=== PATIENT | female | born 2005 | race Caucasian/White ===

== ENCOUNTER 2024-10-10 14:40 | Emergency (ER) | payer OTHER ==
--- NOTE | 2024-10-10 16:39 | RAD REPORT ---
EXAM: CT Head Brain Wo Cont HISTORY: head injury COMPARISON: None TECHNIQUE: Multiple contiguous axial images were obtained for a CT of the brain without contrast. Sag ittal and coronal reformats were performed. One or more of the following dose reduction techniques were used: Automated exposure control, adjus tment of the mA and kV according to patient size, and iterative reconstruction. Unless otherwise specified, incidental findings do not require dedicated imaging follow-up. FINDINGS: No evidence of hydrocephalus, intracranial hemorrhage, or extra-axial fluid collection. The brain is normal in morphology. The calvarium is intact. The visualized paranasal sinuses and mastoid air cells are essentially clear . IMPRESSION: No evidence of acute intracranial abnormality.
--- NOTE | 2024-10-10 16:57 | EDPHYS ---
Physician Documentation [facility] Name: Ari Zelaya Age: 19 yrs Sex: Female : 2005 Arrival Date: 10/10/2024 Time: 14:40 Bed Treatment Private MD: ED Physician Suleman Edwards HPI: 10/10 15:06 This 19 yrs old Female presents to ER via Ambulatory with complaints of Head Injury rn Without LOC-Adult. 15:06 The patient or guardian reports injury, pain. The complaints affect the right temporal rn area. Onset: The symptoms/episode began/occurred just prior to arrival. Severity of symptoms: At their worst the symptoms were mild, in the emergency department the symptoms have improved. The patient has experienced similar episodes in the past. Patient reports fall while trying to clean up debris, struck right confucianist on a tree branch. No LOC. No blood thinners. Has had 2 concussions in the past. No seizure. No vomiting but reports nausea.. Historical: - Allergies: 15:06 Codeine; cm10 15:06 PENICILLINS; cm10 - PMHx: 15:06 Hypoglycemia; ROMEO DISEASE; cm10 - Immunization history:: Adult Immunizations up to date. - Infectious Disease History:: Denies. - Family history:: not pertinent. - Social history:: Smoking status: unknown. - Hospitalizations: : No recent hospitalization is reported. ROS: 15:06 Constitutional: Negative for fever, chills, and weight loss, Neck: Negative for injury, rn pain, and swelling, Cardiovascular: Negative for chest pain, palpitations, and edema, Respiratory: Negative for shortness of breath, cough, wheezing, and pleuritic chest pain, Abdomen/GI: Negative for abdominal pain or vomiting, positive for nausea Back: Negative for injury and pain, MS/Extremity: Negative for injury and deformity, Skin: Negative for injury, rash, and discoloration, Neuro: Positive for head injury with headache. Exam: 15:06 Constitutional: This is a well developed, well nourished patient who is awake, alert, rn and in no acute distress. Head/Face: Normocephalic, atraumatic. Neck: No midline cervical tenderness. MS/ Extremity: Pulses equal, no cyanosis. Neurovascular intact. Full, normal range of motion. Equal circumference. Superficial abrasions to the right forearm with full range of motion. Neuro: Awake and alert, GCS 15, oriented to person, place, time, and situation. Cranial nerves II-XII grossly intact. Motor strength 5/5 in all extremities. Sensory grossly intact. Cerebellar exam normal. Normal gait. Vital Signs: 15:05 BP 137 / 92; Pulse 94; Resp 18; Temp 99.3(O); Pulse Ox 96% on R/A; Pain 0/10; cm10 17:15 BP 131 / 84; Pulse 74; Resp 17; Temp 98; Pulse Ox 99% on R/A; rs5 15:05 Pain Scale: Adult cm10 [place] Coma Score: 15:06 Eye Response: spontaneous(4). Motor Response: obeys commands(6). Verbal Response: rn oriented(5). Total: 15. 16:56 Eye Response: spontaneous(4). Motor Response: obeys commands(6). Verbal Response: rn oriented(5). Total: 15. MDM: 14:51 Medical Screening Exam initiated rn 16:56 Differential diagnosis: Contusion of head. Data reviewed: vital signs, nurses notes, rn radiologic studies, CT scan, and as a result, I will discharge patient. Counseling: I had a detailed discussion with the patient and/or guardian regarding the historical points, exam findings, and any diagnostic results supporting the discharge/admit diagnosis, radiology results, the need for outpatient follow up, to return to the emergency department if symptoms worsen or persist or if there are any questions or concerns that arise at home. Special discussion: I discussed with the patient/guardian in detail that at this point there is no indication for admission to the hospital. It is understood, however, that if the symptoms persist or worsen the patient needs to return immediately for re-evaluation. 10/10 14:56 Order name: CT Head Brain wo Cont; Complete Time: 16:55 rn Administered Medications: No medications were administered Disposition Summary: 10/10/24 16:57 Discharge Ordered Notes: Location: Home rn Problem: new rn Symptoms: have improved rn Condition: Stable rn Diagnosis - Unspecified injury of head, initial encounter rn Followup: rn - With: Private Physician - When: As needed - Reason: Recheck today's complaints, Re-evaluation by your physician Discharge Instructions: - Discharge Summary Sheet rn - Head Injury, Adult rn Forms: - Medication Reconciliation Form rn - Antibiotic broomcorn grader - Prescription Opioid Use rn - Patient Portal Instructions rn - Leadership Thank You Letter rn Signatures: Dispatcher [employer] Suleman Barnes MD MD rn Martinez, Clarissa, RN RN 10 Corrections: (The following items were deleted from the chart) 15:07 15:06 Allergies: No Known Allergies; cm10 cm10
--- NOTE | 2024-10-10 16:57 | ER ---
Nurse's Notes [facility] Name: Ari Zelaya Age: 19 yrs Sex: Female : 2005 Arrival Date: 10/10/2024 Time: 14:40 Bed Treatment Private MD: Diagnosis: Unspecified injury of head, initial encounter Presentation: 10/10 15:05 Chief complaint: Patient states: FELL AND HIT HER HEAD ON A TREE. PT ALSO COMPLAINING cm10 OF PAIN TO RIGHT ARM PAIN.. NO LOC. Coronavirus screen: Client denies travel out of the [place] in the last 14 days. Ebola Screen: Patient denies travel to an Ebola-affected area in the 21 days before illness onset. No symptoms or risks identified at this time. Initial Sepsis Screen: Does the patient meet any 2 criteria? No. Patient's initial sepsis screen is negative. Does the patient have a suspected source of infection? No. Patient's initial sepsis screen is negative. Risk Assessment: Do you want to hurt yourself or someone else? Patient reports no desire to harm self or others. Onset of symptoms was October 10, 2024. 15:05 Method Of Arrival: Ambulatory cm10 15:05 Acuity: TROY 4 cm10 Triage Assessment: 15:07 General: Appears in no apparent distress. comfortable, Behavior is calm, cooperative. cm10 Neuro: No deficits noted. Level of Consciousness is awake, alert, obeys commands, Oriented to person, place, time, situation, Appropriate for age. Respiratory: No deficits noted. Airway is patent Respiratory effort is even, unlabored, Respiratory pattern is regular, symmetrical. Historical: - Allergies: 15:06 Codeine; cm10 15:06 PENICILLINS; cm10 - PMHx: 15:06 Hypoglycemia; ROMEO DISEASE; cm10 - Immunization history:: Adult Immunizations up to date. - Infectious Disease History:: Denies. - Family history:: not pertinent. - Social history:: Smoking status: unknown. - Hospitalizations: : No recent hospitalization is reported. Screenin:10 [facility] ED Fall Risk Assessment (Adult) History of falling in the last 3 months, rs5 including since admission Yes- single mechanical fall (1 pt) Confusion or Disorientation No (0 pts) Intoxicated or Sedated No (0 pts) Impaired Gait No (0 pts) Mobility Assist Device Used No (0 pt) Altered Elimination No (0 pt) Score/Fall Risk Level 0 - 2 = Low Risk Oriented to surroundings, Maintained a safe environment. Abuse screen: Denies threats or abuse. Nutritional screening: No deficits noted. Tuberculosis screening: No symptoms or risk factors identified. Assessment: 15:13 Reassessment: Pt in CT at this time. ss 15:20 General: Appears in no apparent distress. uncomfortable, Behavior is calm, cooperative. rs5 Pain: Complains of pain in head and right arm. 15:20 Pain: Pain currently is 4 out of 10 on a pain scale. Quality of pain is described as rs5 aching, Is continuous. Neuro: Level of Consciousness is awake, alert, obeys commands, Oriented to person, place, time, situation. Cardiovascular: Patient's skin is warm and dry. Respiratory: Airway is patent Respiratory effort is even, unlabored, Respiratory pattern is regular, symmetrical. GI: Abdomen is round non-distended, Abd is soft and non tender X 4 quads. : No signs and/or symptoms were reported regarding the genitourinary system. EENT: No signs and/or symptoms were reported regarding the EENT system. Derm: Skin is intact, Skin is pink, warm \T\ dry. Musculoskeletal: Range of motion: limited in right arm. 16:33 Reassessment: Patient and/or family updated on plan of care and expected duration. Pain rs5 level reassessed. Patient is alert, oriented x 3, equal unlabored respirations, skin warm/dry/pink. 17:20 Reassessment: Patient and/or family updated on plan of care and expected duration. Pain rs5 level reassessed. Patient is alert, oriented x 3, equal unlabored respirations, skin warm/dry/pink. Vital Signs: 15:05 BP 137 / 92; Pulse 94; Resp 18; Temp 99.3(O); Pulse Ox 96% on R/A; Pain 0/10; cm10 17:15 BP 131 / 84; Pulse 74; Resp 17; Temp 98; Pulse Ox 99% on R/A; rs5 15:05 Pain Scale: Adult cm10 [place] Coma Score: 15:06 Eye Response: spontaneous(4). Motor Response: obeys commands(6). Verbal Response: rn oriented(5). Total: 15. 16:56 Eye Response: spontaneous(4). Motor Response: obeys commands(6). Verbal Response: rn oriented(5). Total: 15. ED Course: 14:43 Patient arrived in ED. im 14:50 Suleman Edwards MD is Attending Physician. rn 15:06 Triage completed. cm10 15:07 Arm band placed on right wrist. Patient placed in waiting room. cm10 15:10 Patient has correct armband on for positive identification. Placed in gown. Bed in low rs5 position. Call light in reach. Side rails up X2. 15:10 No provider procedures requiring assistance completed. rs5 15:15 CT Head Brain wo Cont In Process Unspecified. EDMS 17:15 Provided Education on: discharge instructions . rs5 17:17 Richard Taylor, RN is Primary Nurse. rs5 17:17 Patient did not have IV access during this emergency room visit. rs5 Administered Medications: No medications were administered Medication: 17:15 VIS not applicable for this client. rs5 Outcome: 16:57 Discharge ordered by MD. rn 17:17 Discharged to home ambulatory, rs5 17:17 Condition: stable rs5 17:17 Discharge instructions given to patient, family, Instructed on discharge instructions, follow up and referral plans. 17:18 Patient left the ED. rs5 Signatures: Dispatcher [employer] EDMA Suleman Edwards MD MD rn Blanchard, Shelby, RN RN Richard Taylor, DARRIUS RN rs5 Ibis Dominguez Clarissa RN RN cm10 Corrections: (The following items were deleted from the chart) 15:07 15:06 Allergies: No Known Allergies; cm10 cm10 17:28 17:15 BP 131 / 84; Pulse 74bpm; Resp 17bpm; Pulse Ox 99% RA; rs5 rs5
[2024-10-10 17:39] VITALS: BP 137/92; TEMP 99.3; O2SAT 96
== END 2024-10-10 17:18 | disposition home or self-care (01) ==
LOC: ER 14:40 → EDSEX 14:40 → ER 17:18
DX: S09.90XA Unspecified injury of head, initial encounter (principal); R51.9 Headache, unspecified
CPT/HCPCS: 70450; 99283